=== PATIENT | male | born 1995 | race Caucasian/White ===

== ENCOUNTER 2023-09-25 11:01 | Emergency (ER) | payer OTHER ==
[~2023-09-25] VITALS: Ht 182.9 cm; Wt 100.7 kg
[2023-09-25] MEDS ORDERED: NASAL MIST126 ML (11:14)
[2023-09-25] MEDS ORDERED: ZOLOFT100 MG PO (11:14)
== END 2023-09-25 15:11 | disposition home or self-care (01) ==
LOC: ER 11:02
DX: S91.312A Laceration without foreign body, left foot, initial encounter (principal); W45.8XXA Other foreign body or object entering through skin, initial encounter; Y93.89 Activity, other specified; Y92.89 Other specified places as the place of occurrence of the external cause; Y99.8 Other external cause status